=== PATIENT | male | born 1940 | race Hispanic/Latino ===

== ENCOUNTER 2024-08-25 16:54 | Inpatient (IN) | payer OTHER ==
[~2024-08-25] VITALS: Ht 167.6 cm; Wt 61.0 kg
[2024-08-25] MEDS ORDERED: acetaMINOPHEN 500 MG TABLET PO ONE (17:00)
[2024-08-25 17:22] LABS: BASOPHILS # (AUTO) 0.04 K/uL (0.00-0.20); BASOPHILS % (AUTO) 0.3 % (0.0-5.0); EOSINOPHILS # (AUTO) 0.01 K/uL (0.00-0.70); EOSINOPHILS % (AUTO) 0.1 % (0.0-8.0); HEMATOCRIT 35.1 % (42-54); IMMATURE GRANULOCYTE ABSOLUTE 0.06 K/uL (0-1); LYMPHOCYTES # (AUTO) 0.3 K/uL (1.0-4.8); MEAN CORPUSCULAR HGB CONC 33.9 g/dL (32.0-36.0); MEAN CORPUSCULAR VOLUME 100.3 fL (79-99); MONOCYTES # (AUTO) 0.6 K/uL (0.1-1.0); MONOCYTES % (AUTO) 4.6 % (3.0-13.0); NEUTROPHILS # (AUTO) 11.6 K/uL (1.8-7.7); NEUTROPHILS % (AUTO) 92.5 % (40.0-77.0); PLATELET COUNT (AUTO) 181 K/uL (130-400); WHITE BLOOD COUNT (AUTO) 12.6 K/uL (4.8-10.8)
[2024-08-25 17:29] LABS: RAPID GROUP A STREP negative (NEGATIVE)
[2024-08-25 17:32] LABS: SARS-CoV-2, RNA, NAAT NEGATIVE SARS CoV-2 (NEGATIVE)
[2024-08-25 17:33] LABS: CREATININE 0.8 mg/dL (0.5-1.3)
[2024-08-25 17:39] LABS: INFLUENZA TYPE A Negative For Type A (NEGATIVE); INFLUENZA TYPE B Negative For Type B (NEGATIVE)
[2024-08-25 17:44] LABS: B-TYPE NATRIURETIC PEPTIDE 37 pg/mL (0-100)
[2024-08-25] MEDS: ZOSYN 3.375GM +NS 50ML IV ONE (17:45)
[2024-08-25] MEDS: ibuPROFEN 400 MG TABLET PO ONE (17:45)
[2024-08-25] MEDS: 0.9%NACL 1000ML 1,000 ML IV ONE ×2 (17:45→18:30)
[2024-08-25 17:46] LABS: ALBUMIN 2.6 g/dL (3.5-5.0); BILIRUBIN,DIRECT 3.2 mg/dL (0.0-0.3); BILIRUBIN,TOTAL 4.1 mg/dL (0.2-1.0); TOTAL PROTEIN, SERUM 7.8 g/dL (6.0-8.3)
--- NOTE | 2024-08-25 17:54 | HMCIMG ---
CHEST 1VW HISTORY: Fever COMPARISON: None FINDINGS: A frontal projection of the chest was obtained. No acute pulmonary infiltrates is seen. The heart is borderline enlarged. Degenerative changes are seen. No evidence of aortic calcification is seen. IMPRESSION: 1. No acute pulmonary infiltrate is seen.
--- NOTE | 2024-08-25 18:14 | NUR ---
SONO TECH AT BEDSIDE.
--- NOTE | 2024-08-25 18:40 | NUR ---
ORDERS RECEIVED FROM DR STANLEY
--- NOTE | 2024-08-25 18:50 | HMCIMG ---
US ABDOMINAL RUQ\E\LTD HISTORY: Pain COMPARISON: None TECHNIQUE: Right upper quadrant abdominal ultrasound study was performed. FINDINGS: Liver measures 18.6 cm. Portal vein is patent. Intrahepatic duct dilatation is seen. Sludge material is seen in the gallbladder. The visualized portion of the pancreas is within normal limits. Liver is echogenic consistent with liver parenchymal disease. No gallstone is seen. Common duct measures under 2 mm. No evidence of gallbladder wall thickening is seen. Right kidney measures 10.1 x 4.1 x 4.9 cm. No hydronephrosis is seen of the right kidney. IMPRESSION: 1. Sludge material is seen in the gallbladder. No gallstone is seen. There are intrahepatic and extrahepatic ductal dilatation. 2. No hydronephrosis is seen.
--- NOTE | 2024-08-25 18:58 | ERN ---
ED Note History of Present Illness Stated Complaint: FEVER Chief Complaint: Fever Time Seen by MD: 16:57 Dictation: 83-year-old male presenting from incarceration with fever not feeling well and GI discomfort. No pain patient reports history of prostatitis. [facility] medical s creening staff reported fever and tachycardia. Allergies: Coded Allergies: No Known Drug Allergies (Unverified Allergy, Unknown, 08/25/24) Past Medical History Past Medical History: Arthritis, Other Additional Past Medical Hx: BPH Surgical History: None Review of System Dictation Constitutional: Per HPI Eyes: Negative for injury, pain,redness, and discharge ENT: Negative for injury,pain or swelling Cardiovascular: Negative for chest pain, palpitations, and edema Respiratory: Negative for shortness of breath, cough, and wheezing, Abdomen/GI: Per HPI Back: Negative for injury and pain : Negative for injury, bleeding and discharge MS/Extremity: Negative for injury and deformity Skin: Negative for rash, and discoloration Neuro: Negative for headache, weakness, numbness, tingling, and seizure Psych: Negative for suicide ideation, homicidal ideation, and hallucinations Initial Vital Sign VS Vital Signs Date Time Temp Pulse Resp B/P (MAP) Pulse Ox O2 Delivery O2 Flow Rate FiO2 08/25/24 16:56 101.8 112 16 126/71 98 Room Air 0 Physical Exam Dictation General: awake, alert, febrile,. Appears ill Head/Face: Normocephalic, atraumatic Eyes: PERRL, EOMI, vision at baseline ENT: oral cavity clear, TMs clear, no signs of infection Neck: Trachea midline, supple, no nuchal rigidity Cardiovascular: Tachycardia, normal S1/S2, No MRGs, no JVD Respiratory: CTAB, no respiratory distress, No rales or wheezes Abdomen: Soft, non-tender, non-distended, normal bowel sounds, no guarding or rebound. Skin: Warm, dry, normal turgor, no rash MS/Extremity: Pulses equal, no cyanosis, neurovascular intact, FROM Neuro: COAx4, GCS 15, strength 5/5, CN 2-12 intact, normal cerebellar exam, normal gait, Psych: Normal behavior, mood, and affect normal Results (Laboratory/Radiology) Laboratory/Radiology Laboratory Tests Test 08/25/24 17:05 08/25/24 17:10 Influenza Type A Antigen Negative For Type A Influenza Type B Antigen Negative For Type B SARS-CoV-2, RNA, NAAT NEGATIVE SARS CoV-2 Group A Streptococcus Rapid negative (NEGATIVE) White Blood Count 12.6 K/uL (4.8-10.8) H Red Blood Count 3.50 MIL/uL (4.50-6.20) L Hemoglobin 11.9 g/dL (14.0-18.0) L Hematocrit 35.1 % (42-54) L Mean Corpuscular Volume 100.3 fL (79-99) H Mean Corpuscular Hemoglobin 34.0 pg (27.0-33.0) H Mean Corpuscular Hemoglobin Concent 33.9 g/dL (32.0-36.0) Red Cell Distribution Width 13.0 % (11.0-15.5) Platelet Count 181 K/uL (130-400) Mean Platelet Volume 9.6 fL (7.5-10.5) Immature Granulocyte % (Auto) 0.5 % (0-1) Neutrophils (%) (Auto) 92.5 % (40.0-77.0) H Lymphocytes (%) (Auto) 2.0 % (21.0-51.0) L Monocytes (%) (Auto) 4.6 % (3.0-13.0) Eosinophils (%) (Auto) 0.1 % (0.0-8.0) Basophils (%) (Auto) 0.3 % (0.0-5.0) Neutrophils # (Auto) 11.6 K/uL (1.8-7.7) H Lymphocytes # (Auto) 0.3 K/uL (1.0-4.8) L Monocytes # (Auto) 0.6 K/uL (0.1-1.0) Eosinophils # (Auto) 0.01 K/uL (0.00-0.70) Basophils # (Auto) 0.04 K/uL (0.00-0.20) Absolute Immature Granulocyte (auto 0.06 K/uL (0-1) Nucleated Red Blood Cells 0.0 % (0.0-0.19) White Cell Morphology Comment See comments Sodium Level 133 mmol/L (136-145) L Potassium Level 4.0 mmol/L (3.5-5.1) Chloride Level 99 mmol/L (101-111) L Carbon Dioxide Level 27 mmol/L (21-32) Blood Urea Nitrogen 18 mg/dL (7-18) Creatinine 0.8 mg/dL (0.5-1.3) Glomerular Filtration Rate Calc 88 mL/min (>90) Random Glucose 145 mg/dL (70-105) H Lactic Acid Level 1.7 mmol/L (0.8-2.5) Total Calcium 8.3 mg/dL (8.5-10.1) L Total Bilirubin 4.1 mg/dL (0.2-1.0) H Direct Bilirubin 3.2 mg/dL (0.0-0.3) H Aspartate Amino Transf (AST/SGOT) 145 U/L (10-37) H Alanine Aminotransferase (ALT/SGPT) 135 U/L (12-78) H Alkaline Phosphatase 663 U/L (50-136) *H Total Creatine Kinase 126 U/L (21-232) Troponin I High Sensitivity 10 ng/L (4-75) B-Type Natriuretic Peptide 37 pg/mL (0-100) Total Protein 7.8 g/dL (6.0-8.3) Albumin 2.6 g/dL (3.5-5.0) L Labs Reviewed?: Yes EKG Comment: Sinus tachycardia heart rate 123 normal intervals no STEMI ED Course ED Course Orders Procedure Category Date Status Time 12 Lead Ekg Tracing- EKG 08/25/24 Logged Technical 16:57 B-Type Natriuretic LAB 08/25/24 Complete Peptide 16:57 Basic Metabolic Panel LAB 08/25/24 Complete 16:57 Blood Cult SHAREE 08/25/24 In Process 16:57 Creatine Kinase, Total LAB 08/25/24 Complete 16:57 Hepatic Function Panel LAB 08/25/24 Complete 16:57 Cbc With Differential LAB 08/25/24 Complete 16:57 Lactic Acid LAB 08/25/24 Complete 16:57 Troponin I High LAB 08/25/24 Complete Sensitivity 16:57 Urinalysis Profile LAB 08/25/24 Logged 16:57 Chest 1vw RAD 08/25/24 Resulted 16:57 Zosyn 3.375gm+Ns 50ml PHA 08/25/24 Complete (Zosyn 3.375gm+Ns 17:00 0.9%Nacl 1000ml (Ns PHA 08/25/24 Complete 1000ml) 17:00 Acetaminophen 500mg PHA 08/25/24 Complete Tab (Tylenol 500mg T 17:00 Covid Rna Naat LAB 08/25/24 Complete 17:06 Influenza Type A & B, LAB 08/25/24 Complete Rapid 17:06 Rapid (Group A Strep) LAB 08/25/24 Complete 17:06 Ibuprofen (Motrin) PHA 08/25/24 Complete 17:30 Us Abdominal Ruq\Ltd US 08/25/24 Resulted 17:56 0.9%Nacl 1000ml (Ns PHA 08/25/24 Complete 1000ml) 18:30 *Nursing CPOE 08/25/24 Transmitted Communication: 18:09 Current Medications Medications (Trade) Dose Ordered Sig/Justus Route PRN Reason Start Time Stop Time Status Last Admin Dose Admin Acetaminophen (TYLenol 500MG TAB) 1,000 mg ONCE ONCE PO 08/25/24 17:00 08/25/24 17:07 DC Ibuprofen (moTRIN) 600 mg ONCE ONCE PO 08/25/24 17:30 08/25/24 17:31 DC 08/25/24 17:45 Piperacillin Sod/ Tazobactam Sod (Zosyn 3.375gm+NS 50ml) 3.375 gm ONCE ONCE IV 08/25/24 17:00 08/25/24 17:01 DC 08/25/24 17:45 Sodium Chloride 1,000 ml @ 0 mls/hr ONCE ONCE IV 08/25/24 17:00 08/25/24 17:01 DC 08/25/24 17:45 Sodium Chloride 1,000 ml @ 0 mls/hr ONCE ONCE IV 08/25/24 18:30 08/25/24 18:31 DC Vital Signs Date Time Temp Pulse Resp B/P (MAP) Pulse Ox O2 Delivery O2 Flow Rate FiO2 08/25/24 16:56 101.8 112 16 126/71 98 Room Air 0 Medical Decision Making MDM MDM: Differential diagnosis: Rationale: Tests considered and ordered secondary to shared decision making include: labs, ECG and radiology Previous outside records reviewed: Old ER visits. Risk of complication and/or morbidity or mortality of patient management: None Medications-Per medication reconciliation Need for hospitalization: Patient does meet criteria for hospitalization. Need for emergency major/minor surgery: No There are no social concerns with this patient. Prescription drug management Prescriptions will include symptomatic care Patient's prior external medical records from other ER visits were reviewed by me as indicated. Prior testing and results from previous visits were reviewed. Prior tests were taken into account with medical decision making and resource utilization, independent historian/historians were used to obtain complete medical history. I independently interpreted the test that were performed, results were reviewed by me and considered findings on radiology if ordered. Medical management and examination interpretation discussions were had by me with other qualified healthcare professionals as indicated for the patient's care. 83-year-old male with sepsis, transaminitis with elevated direct bilirubin concern for choledocholithiasis/cholangitis, started on broad-spectrum antibiotics IV fluids admitting to Medicine with GI consult for Critical Care Note Comment(s) Total critical care time was 33 minutes. Excluding time for procedures. Management of critically ill patient with concern for acute decompensation. Management included interpretation of laboratory values and imaging, hemodynamics, time for consultation with consultants and admitting physician. DX & DISP Disposition: Inpatient Departure Impression: Primary Impression: Sepsis Additional Impressions: Choledocholithiasis, Cholangitis Condition: Stable Referrals: SELF,REFERRAL (PCP) MAYUR FINCH MD Aug 25, 2024 18:58
--- NOTE | 2024-08-25 19:10 | NUR ---
REPORT ENDORSED TO CHARITO LUNDBERG
[2024-08-25] MEDS ORDERED: acetaMINOPHEN 325 MG TAB PO PRN (20:30)
[2024-08-25] MEDS: ZOSYN 3.375GM +NS 50ML IV SCH (20:30)
[2024-08-25] MEDS ORDERED: ondanSETRON 4MG TABLET PO SCH (20:30)
[2024-08-25] MEDS: DEXTROSE 5 % AND 0.9 % NACL 1,000 ML IV SCH (20:48)
[2024-08-25] MEDS ORDERED: ondanSETRON 4MG TABLET PO PRN (21:00)
[2024-08-25 21:28] LABS: APPEARANCE,URINE CLEAR (CLEAR); BILIRUBIN,URINE 1 mg/dL (NEGATIVE); COLOR,URINE DARK-YELLOW (YELLOW); GLUCOSE, URINE (UA) NEGATIVE (NEGATIVE); KETONES,URINE NEGATIVE (NEGATIVE); LEUKOCYTE ESTERASE ,URINE NEGATIVE Leu/uL (NEGATIVE); NITRATE,URINE NEGATIVE (NEGATIVE); OCCULT BLOOD,URINE NEGATIVE (NEGATIVE); PROTEIN,URINE NEGATIVE (NEGATIVE); UROBILINOGEN,URINE 3 mg/dL (0.2-1.0)
[2024-08-25 21:30] LABS: ADD UA MICROSCOPIC YES; MUCUS,URINE RARE LPF (None Seen); SQUAMOUS EPITHELIAL CELL,UR RARE /HPF (0-2); WBC,URINE 0-1 /HPF (0-1)
--- NOTE | 2024-08-25 21:47 | NUR ---
RECEIVED REPORT FROM CHARITO POTTS RN, AWAITING PATIENT ARRIVAL TO UNIT.
[2024-08-26] VITALS (8 sets, daily range): BP systolic 119–151; BP diastolic 65–83; PULSE 62–89; RESP 16–18; TEMP 97.5–97.8; O2SAT 98–100
[2024-08-26] MEDS: ZOSYN 3.375GM +NS 50ML IV SCH (02:18)
--- NOTE | 2024-08-26 06:43 | EKG ---
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
[2024-08-26] MEDS: ENOXAPARIN SODIUM 30 MG/0.3 ML SQ SCH (09:00)
--- NOTE | 2024-08-26 11:14 | NUR ---
DCP: [facility] Pt is currently being detained at [facility]. Spoke with officer Dominic and once pt is stable he will be returning to custody. Addendum: 08/26/24 at 1115 by HARISH LOVE SS Amended: Links added.
--- NOTE | 2024-08-26 15:04 | CONS ---
GENERAL SURGERY CONSULTATION NOTE Date/Time Patient Seen: [August 26, 2024 ] Requesting Physician: [Dr. Dave Avitia ] Reason for Consultation: [ Elevated liver function tests with findings of possible choledocholithiasis] History of Present Illness: [ Patient was and a incarcerated facility when he started not feeling well with abdominal shakes. Altered mental status. Patient also indicates he had a three day history of very dark urine. Patient indicates the onset was sudden. Never had symptoms like this before. Patient denies any melena, hematochezia, hematuria. Patient can not tell me he has had significant amount of weight loss recently. Patient denies any medical problems. Says that he has had a history of an appendectomy and foot surgery as a child. Patient had the ultrasound done. I personally reviewed the ultrasound. Patient does have some stones in the gallbladder however his dilated biliary tree is concerning for not just stones. At this point in time I think a CT scan is warranted to get a global view of liver and the pancreas well as the rest of the biliary.] Past Medical History: [ Patient denies] Past Surgical History: [ Appendectomy, foot surgery] Family History: [ Noncontributory] Social History: [ Patient denies any illicit drug use] Habits: [Never] smoker. [Denies] alcohol consumption. [Denies] illicit drug use Current Medications Medications (Trade) Dose Ordered Sig/Justus Route Start Time Stop Time Status Last Admin Dose Admin Dextrose/Sodium Chloride 1,000 ml @ 75 mls/hr [id number] IV 08/25/24 20:30 09/24/24 20:29 08/25/24 20:48 75 MLS/HR Enoxaparin Sodium (Lovenox) 30 mg DAILY SQ 08/26/24 09:00 09/25/24 08:59 Ondansetron HCl (zoFRAN 4MG TABLET) 4 mg Q6H PO 08/25/24 20:30 08/25/24 20:36 DC Piperacillin Sod/ Tazobactam Sod (Zosyn 3.375gm+NS 50ml) 3.375 gm Q8H IV 08/25/24 20:30 08/25/24 20:39 DC Piperacillin Sod/ Tazobactam Sod (Zosyn 3.375gm+NS 50ml) 3.375 gm Q8H IV 08/26/24 02:00 09/05/24 01:59 08/26/24 12:51 3.375 GM Review of Systems: Fourteen point review of systems negative except was mentioned in the history of present illness Physical Examination: GENERAL: [No acute distress.] HEAD: [Normal with no signs of head trauma.] EYES: [PERRLA, EOMI, conjunctiva and sclera normal.] ENT: [Hearing grossly intact, normal oropharynx.] NECK: [Supple without JVD. There is no tenderness, lymphadenopathy, or masses. No thyromegaly. Normal carotid upstrokes without bruits.] LUNGS: [Clear breath sounds bilaterally. There are right basilar rales one third of the way up the chest. No wheezes, or rhonchi.] HEART: [Normal rate and rhythm. Normal S1 and S2 without mumurs, gallop or rub.] VASC: [Peripheral pulses +2 bilaterally.] ABD: [Bowel sounds normal, soft, nontender, no masses, no organomegaly. No audible bruits.] : [Not examined] LYMPH: [No lymphadenopathy noted.] EXT: [No clubbing, cyanosis or edema.] SKIN: [No rashes or lesions noted.] NEURO: [Awake, alert, and oriented x3. No focal sensory or strength deficits noted.] Vital Signs (last 8hr) Date Time Temp Pulse Resp B/P (MAP) Pulse Ox O2 Delivery O2 Flow Rate FiO2 08/26/24 12:00 97.5 62 18 141/73 96 Room Air 21 08/26/24 08:00 97.9 64 16 128/78 96 Room Air 21 Laboratory: [ ] Hematology Labs: Test 08/25/24 17:10 Range/Units White Blood Count 12.6 H 4.8-10.8 K/uL Red Blood Count 3.50 L 4.50-6.20 MIL/uL Hemoglobin 11.9 L 14.0-18.0 g/dL Hematocrit 35.1 L 42-54 % Mean Corpuscular Volume 100.3 H 79-99 fL Mean Corpuscular Hemoglobin 34.0 H 27.0-33.0 pg Mean Corpuscular Hemoglobin Concent 33.9 32.0-36.0 g/dL Red Cell Distribution Width 13.0 11.0-15.5 % Platelet Count 181 130-400 K/uL Mean Platelet Volume 9.6 7.5-10.5 fL Immature Granulocyte % (Auto) 0.5 0-1 % Neutrophils (%) (Auto) 92.5 H 40.0-77.0 % Lymphocytes (%) (Auto) 2.0 L 21.0-51.0 % Monocytes (%) (Auto) 4.6 3.0-13.0 % Eosinophils (%) (Auto) 0.1 0.0-8.0 % Basophils (%) (Auto) 0.3 0.0-5.0 % Neutrophils # (Auto) 11.6 H 1.8-7.7 K/uL Lymphocytes # (Auto) 0.3 L 1.0-4.8 K/uL Monocytes # (Auto) 0.6 0.1-1.0 K/uL Eosinophils # (Auto) 0.01 0.00-0.70 K/uL Basophils # (Auto) 0.04 0.00-0.20 K/uL Absolute Immature Granulocyte (auto 0.06 0-1 K/uL Nucleated Red Blood Cells 0.0 0.0-0.19 % White Cell Morphology Comment See comments Chemistry Labs: Test 08/25/24 17:10 Range/Units Sodium Level 133 L 136-145 mmol/L Potassium Level 4.0 3.5-5.1 mmol/L Chloride Level 99 L 101-111 mmol/L Carbon Dioxide Level 27 21-32 mmol/L Blood Urea Nitrogen 18 7-18 mg/dL Creatinine 0.8 0.5-1.3 mg/dL Glomerular Filtration Rate Calc 88 >90 mL/min Random Glucose 145 H 70-105 mg/dL Lactic Acid Level 1.7 0.8-2.5 mmol/L Total Calcium 8.3 L 8.5-10.1 mg/dL Total Bilirubin 4.1 H 0.2-1.0 mg/dL Direct Bilirubin 3.2 H 0.0-0.3 mg/dL Aspartate Amino Transf (AST/SGOT) 145 H 10-37 U/L Alanine Aminotransferase (ALT/SGPT) 135 H 12-78 U/L Alkaline Phosphatase 663 *H 50-136 U/L Total Creatine Kinase 126 21-232 U/L Troponin I High Sensitivity 10 4-75 ng/L B-Type Natriuretic Peptide 37 0-100 pg/mL Total Protein 7.8 6.0-8.3 g/dL Albumin 2.6 L 3.5-5.0 g/dL Diagnostics / Radiology: [Copy/Paste Echos/Imaging Report here] Assessment: [Biliary distention ] Plan: [ At home think that this is just choledocholithiasis. I think the could be a malignancy head and some air. I think a CT scan of abdomen pelvis triple phase is warranted to fully evaluate all structures to rule out just choledocholithiasis. Discussed the case with the primary physician who agrees with the plan.] BRE JAMES MD Aug 26, 2024 15:04
[2024-08-26] MEDS ORDERED: GADOTERATE MEGLUMINE 10 MMOL/20 ML VIAL IV ONE (16:15)
[2024-08-26] MEDS ORDERED: IOHEXOL 350 MG/ML 100ML INFUS..BTL IV ONE (16:25)
--- NOTE | 2024-08-26 16:48 | HMCIMG ---
MRCP(ABDWWO)CHOLANGIOPANCREATO HISTORY: Possible cholangitis COMPARISON: None TECHNIQUE: MRI of the abdomen was performed utilizing multiple pulse sequences in axial, coronal and sagittal planes. Patient was given 12 cc of Clariscan through intravenous route. MRCP was obtained. FINDINGS: No pleural effusion is seen bilaterally. The liver is enlarged measuring 18 cm. Gallstones is seen in the gallbladder. Common duct is dilated measuring 2.2 cm. Gallstones are seen in the distal common duct with the largest measuring 12 mm. Mild intrahepatic ductal dilatation is seen. Spleen measures 13 cm. Adrenal glands and pancreas are unremarkable. Both kidneys are seen without hydronephrosis. IMPRESSION: 1. Gallstones in the gallbladder. Lumen there is dilated measuring 2.3 cm. Common duct stones as seen.
--- NOTE | 2024-08-26 17:37 | HMCIMG ---
CT ABD/PEL WWO 3 PHASE HISTORY: Biliary dilatation COMPARISON: None TECHNIQUE: Multiple sequential axial images of the abdomen and pelvis were obtained from the dome of the diaphragm through symphysis pubis. Patient was given 100 cc of Omnipaque through intravenous route. Oral contrast was not given. Dynamic imaging technique was used. FINDINGS: No pleural effusion is seen bilaterally. There is no evidence of parenchymal disease or pulmonary nodule of the visualized lower lungs. Degenerative changes of the thoracolumbar spine are present. The heart is not enlarged. Liver is enlarged measuring 18 cm. Gallstones are seen in the gallbladder. There is intrahepatic ductal dilatation. There is pancreatic head enlargement measuring 3.5 cm. Common duct is dilated measuring 15 mm. There is common duct stone measuring 14 mm. There is pericholecystic fluid. The liver, spleen, adrenal glands are unremarkable. There is no evidence of hydronephrosis bilaterally. No evidence of renal stone is seen. Fecal material is seen in the colon. There are normal size retroperitoneal and mesenteric lymph nodes. No ascites is seen. Atherosclerotic changes are present. Pelvic sidewalls are symmetric bilaterally. Bladder is well distended without wall thickening. IMPRESSION: 1. Gallstones in the gallbladder. Dilated common duct with common duct stone. Less amount of fecal material is seen in the colon. Pancreatic head is enlarged measuring 3.[address] was performed with one or more following dose reduction techniques: automated exposure control, adjustment of the mA and kv according to patient's size, or use of a iterative reconstruction technique.
--- NOTE | 2024-08-26 18:00 | NUR ---
SPOKE WITH DR CHRISTIANSEN ,ORDERS TO CALL DR YOUNG AND NOTIFY HIM OF PLANS FOR AN ERCP IN THE AFTERNOON AT 130 PM ON 08/27/24.
--- NOTE | 2024-08-26 18:18 | NUR ---
DR YOUNG OKAYED FOR CLEAR LIQUID DIET FOR THIS PM AND INFORMED HIM THAT CT RESULT WAS POSTED.
--- NOTE | 2024-08-26 19:15 | NUR ---
NOTED PATIENT WITH HANDCUFFS REDNESS TO AREA, NO OPEN WOUND.
--- NOTE | 2024-08-26 20:00 | NUR ---
DR CHRISTIANSEN SPOKE TO PATIENT REGARDING POSSIBLE ERCP IN AM. 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
[2024-08-27] VITALS: BP 110/66; PULSE 84; RESP 16; TEMP 97.6
--- NOTE | 2024-08-27 02:14 | HP ---
DATE OF SERVICE: 08/25/2024. HISTORY AND PHYSICAL PRESENTING COMPLAINT: Weakness, abdominal pain, and fever. HISTORY OF PRESENT ILLNESS: An 83-year-old male with a history of osteoarthritis, BPH, presented to the hospital with abdominal pain and weakness. The patient also complained of fever. The patient was brought in from the senior living with the above complaint. T-max was 101.8. Pulse also was elevated. WBC was 12,000. The patient was found with elevated liver enzymes with an alkaline phosphatase of 663, AST 145, ALT 135. Total bilirubin was 4.1. Abdominal sonogram has been done, which shows multiple gallstones and intrahepatic and extrahepatic dilatation. Denied nausea and vomiting. No diarrhea. No bleeding tendencies. No rashes or itchiness. PAST MEDICAL HISTORY: * Osteoarthritis. * BPH. PAST SURGICAL HISTORY: Denied. ALLERGIES: No known drug allergies. HOME MEDICATIONS: None. SOCIAL HISTORY: The patient at present incarcerated at the senior living. No alcohol, tobacco, or illicit drug use. FAMILY HISTORY: Noncontributory. REVIEW OF SYSTEMS: CONSTITUTIONAL: Positive for fever. No weight loss or night sweats. EYES: Positive for jaundice. No photophobia or diplopia. HENT: Denies sore throat, rhinorrhea or earache. NECK: No neck pain, no neck swelling. RESPIRATORY: No cough, no hemoptysis or pleuritic pain. CARDIOVASCULAR: No chest pain, no palpitations or orthopnea. GASTROINTESTINAL: Positive for abdominal pain. No diarrhea. GENITOURINARY: No dysuria, urgency, or urinary frequency. CENTRAL NERVOUS SYSTEM: No headache, dyspnea, or slurred speech. PSYCHIATRY: No depression. No suicidal ideation. PHYSICAL EXAMINATION: GENERAL: Elderly male, awake. VITAL SIGNS: Temperature 101.8, pulse 112, respiratory rate 22. EYES: Jaundiced. Pupils equal and reactive. No conjunctival hemorrhage. HENT: No oral thrush seen. Moist oral mucosa. NECK: Supple. No JVD or thyromegaly. LUNGS: Good air entry. No rales. No rhonchi. CARDIOVASCULAR SYSTEM: S1, S2, regular, tachycardic. No murmur heard. ABDOMEN: Full, soft, nontender. Bowel sound is present. CENTRAL NERVOUS SYSTEM: Awake, alert, and oriented x 3. No focal deficits. SKIN: No rashes, no itchiness. LYMPHATIC: No peripheral lymphadenopathy. BACK: No deformity, no pressure ulcer. MUSCULOSKELETAL: No joint swelling, erythema, or tenderness. LABORATORY DATA: Alkaline phosphatase of 663. AST 145, ALT 135, total bilirubin 4.1. Sodium 133, potassium 4.0, BUN 18, creatinine 0.8. WBC 12.6, hemoglobin 11.9, platelets 181. Urinalysis is negative. negative. RADIOLOGY: Abdominal ultrasound, results were reviewed. ASSESSMENT: An 83-year-old male, presented with fever, abdominal pain. CURRENT PROBLEMS: Include: * Possible gram-negative sepsis. * Possible cholangitis. * Possible choledocholithiasis. * Possible cholecystitis. * Possible pancreatic mass. * Elevated liver enzymes. PLAN: * Admit the patient to medical floor. * Obtain MRCP. * Start the patient on Zosyn. * The patient will be placed on IV fluid. * Morphine as needed for pain. * General surgery evaluation. * Gastroenterology evaluation. * Monitor electrolytes and correct as needed. TID: [id number] RECEIPT: [id number] MTD
--- NOTE | 2024-08-27 02:20 | NUR ---
PATIENT CONTINUE TO REFUSE MEDICAL TREATMENT STATES HE WANTS TO RETURN TO [facility]
[2024-08-27 04:00] VITALS: BP 132/78; PULSE 72; RESP 16; TEMP 97.6
[2024-08-27 04:50] LABS: HEMATOCRIT 37.5 % (42-54); MEAN CORPUSCULAR HEMOGLOBIN 34.3 pg (27.0-33.0); MEAN CORPUSCULAR HGB CONC 35.2 g/dL (32.0-36.0); MEAN CORPUSCULAR VOLUME 97.4 fL (79-99); RED BLOOD CELL COUNT(AUTO) 3.85 MIL/uL (4.50-6.20); WHITE BLOOD COUNT (AUTO) 7.9 K/uL (4.8-10.8)
[2024-08-27 05:21] LABS: ALBUMIN 2.5 g/dL (3.5-5.0); BILIRUBIN,TOTAL 2.2 mg/dL (0.2-1.0); CREATININE 0.7 mg/dL (0.5-1.3); MAGNESIUM 1.8 mg/dL (1.80-2.40); POTASSIUM 3.3 mmol/L (3.5-5.1); TOTAL PROTEIN, SERUM 7.6 g/dL (6.0-8.3)
--- NOTE | 2024-08-27 05:42 | PN ---
INFECTIOUS DISEASE FOLLOWUP NOTE DATE OF SERVICE: 08/26/2024 SUBJECTIVE: The patient is seen. No fever, no chills. No nausea, no vomiting. No abdominal pain. No headache. No bleeding tendency. No rashes are seen. MRCP is pending. PHYSICAL EXAMINATION: VITAL SIGNS: Temperature 98.6. EYES: No icterus. Pupils equal and reactive. HENT: No oral thrush seen. Moist oral mucosa. NECK: Supple. No JVD or thyromegaly. LUNGS: Good air entry. No rales, no rhonchi. CARDIOVASCULAR: S1 and S2 regular. No murmur heard. ABDOMEN: Full, soft, nontender. Bowel sound is present. CENTRAL NERVOUS SYSTEM: Awake, alert, oriented x 3. No focal deficits. SKIN: No rashes, no itchiness. LYMPHATICS: No peripheral lymphadenopathy. BACK: No deformity, no pressure ulcer. MUSCULOSKELETAL: No joint swelling, erythema, or tenderness. ASSESSMENT: An 83-year-old male admitted with abdominal pain. CURRENT PROBLEMS: Include: * Sepsis. * Possible cholangitis. * Possible choledocholithiasis. * Elevated liver enzymes. * Cholecystitis. * Debility. PLAN: * Continue Zosyn. * Continue pain management. * Continue antiemetics. * Follow up cultures. * Continue DVT prophylaxis. TID: [id number] RECEIPT: [id number] MTDD
[2024-08-27] MEDS ORDERED: PoTASSium chloRIDE 20MEQ/100ML 100 ML IV PRN (07:30)
--- NOTE | 2024-08-27 07:38 | PN ---
GENERAL SURGERY PROGRESS NOTE Date/Time Patient Seen: [August 27, 2024 ] Problem List: [Choledocholithiasis] Interval History: [ Patient denies any pain. Patient is resting easily. Had look at the MRCP and the CT abdomen pelvis that was done yesterday. Patient has a common bile duct stone with the head of the pancreas in the head of the pancreas was slightly dilated. This could be because of the common bile duct stone that measured approximately 1.2 cm. I do not think this truly a pancreatic head lesion however if patient is going to undergo an ERCP I think it would be beneficial for brushings to be obtained of the duct. I discussed the case with the practice architect who agrees. I personally looked at the MRCP and the CT scan imaging and then the above interpretation so my interpretation of those images.] Current Medications Medications (Trade) Dose Ordered Sig/Justus Route Start Time Stop Time Status Last Admin Dose Admin Dextrose/Sodium Chloride 1,000 ml @ 75 mls/hr [id number] IV 08/25/24 20:30 09/24/24 20:29 08/27/24 05:09 75 MLS/HR Enoxaparin Sodium (Lovenox) 30 mg DAILY SQ 08/26/24 09:00 09/25/24 08:59 Ondansetron HCl (zoFRAN 4MG TABLET) 4 mg Q6H PO 08/25/24 20:30 08/25/24 20:36 DC Piperacillin Sod/ Tazobactam Sod (Zosyn 3.375gm+NS 50ml) 3.375 gm Q8H IV 08/25/24 20:30 08/25/24 20:39 DC Piperacillin Sod/ Tazobactam Sod (Zosyn 3.375gm+NS 50ml) 3.375 gm Q8H IV 08/26/24 02:00 09/05/24 01:59 08/27/24 01:38 3.375 GM Physical Examination: Awake, alert, oriented x3 Unlabored Regular rate and rhythm Abdomen soft, nontender, nondistended Vital Signs (last 8hr) Date Time Temp Pulse Resp B/P (MAP) Pulse Ox O2 Delivery O2 Flow Rate FiO2 08/27/24 04:00 97.5 72 16 132/78 99 Room Air 21 08/27/24 00:00 97.5 84 16 110/66 98 Room Air 21 Laboratory: [ ] Hematology Labs: Test 08/27/24 04:27 08/25/24 17:10 Range/Units White Blood Count 7.9 4.8-10.8 K/uL Red Blood Count 3.85 L 4.50-6.20 MIL/uL Hemoglobin 13.2 L 14.0-18.0 g/dL Hematocrit 37.5 L 42-54 % Mean Corpuscular Volume 97.4 79-99 fL Mean Corpuscular Hemoglobin 34.3 H 27.0-33.0 pg Mean Corpuscular Hemoglobin Concent 35.2 32.0-36.0 g/dL Red Cell Distribution Width 13.0 11.0-15.5 % Platelet Count 174 130-400 K/uL Mean Platelet Volume 10.1 7.5-10.5 fL Nucleated Red Blood Cells 0.0 0.0-0.19 % Immature Granulocyte % (Auto) 0.5 0-1 % Neutrophils (%) (Auto) 92.5 H 40.0-77.0 % Lymphocytes (%) (Auto) 2.0 L 21.0-51.0 % Monocytes (%) (Auto) 4.6 3.0-13.0 % Eosinophils (%) (Auto) 0.1 0.0-8.0 % Basophils (%) (Auto) 0.3 0.0-5.0 % Neutrophils # (Auto) 11.6 H 1.8-7.7 K/uL Lymphocytes # (Auto) 0.3 L 1.0-4.8 K/uL Monocytes # (Auto) 0.6 0.1-1.0 K/uL Eosinophils # (Auto) 0.01 0.00-0.70 K/uL Basophils # (Auto) 0.04 0.00-0.20 K/uL Absolute Immature Granulocyte (auto 0.06 0-1 K/uL White Cell Morphology Comment See comments Chemistry Labs: Test 08/27/24 04:27 08/25/24 17:10 Range/Units Sodium Level 131 L 136-145 mmol/L Potassium Level 3.3 L 3.5-5.1 mmol/L Chloride Level 98 L 101-111 mmol/L Carbon Dioxide Level 25 21-32 mmol/L Blood Urea Nitrogen 11 7-18 mg/dL Creatinine 0.7 0.5-1.3 mg/dL Glomerular Filtration Rate Calc 92 >90 mL/min Random Glucose 105 70-105 mg/dL Total Calcium 8.8 8.5-10.1 mg/dL Magnesium Level 1.80 1.80-2.40 mg/dL Total Bilirubin 2.2 H 0.2-1.0 mg/dL Aspartate Amino Transf (AST/SGOT) 88 H 10-37 U/L Alanine Aminotransferase (ALT/SGPT) 106 H 12-78 U/L Alkaline Phosphatase 567 H 50-136 U/L Total Protein 7.6 6.0-8.3 g/dL Albumin 2.5 L 3.5-5.0 g/dL Lactic Acid Level 1.7 0.8-2.5 mmol/L Direct Bilirubin 3.2 H 0.0-0.3 mg/dL Total Creatine Kinase 126 21-232 U/L Troponin I High Sensitivity 10 4-75 ng/L B-Type Natriuretic Peptide 37 0-100 pg/mL Diagnostics / Radiology: [Copy/Paste Echos/Imaging Report here] Impression and Plan: [ Choledocholithiasis. I recommend patient undergo an ERCP with brushings then possibly a laparoscopic cholecystectomy with intraoperative cholangiogram. At this point in time patient indicates he wants to go back to his facility. I discussed the case at length with the patient and told him that I recommend that he undergo with the procedure but that it is his decision of what he wants to do. I will await patient's final decision.] BRE JAMES MD Aug 27, 2024 07:38
[2024-08-27 08:00] VITALS: BP 133/84; PULSE 95; RESP 18; TEMP 97
[2024-08-27] MEDS: MAGNESIUM 2GM PREMIX 50ML 50 ML IV PRN (09:10)
[2024-08-27 09:11] VITALS: O2SAT 99
[2024-08-27] MEDS: PoTASSium chloRIDE 20MEQ ER 20 MEQ ERTAB PO PRN (09:11)
--- NOTE | 2024-08-27 11:55 | CONS ---
GASTROINTESTINAL CONSULTATION REFERRING PHYSICIAN: David Stanley MD REASON FOR CONSULTATION: Fever, chills with abnormal abdominal imaging with CT scan and MRI showing choledocholithiasis with enlargement of pancreatic head and triple-phase CT in a patient with elevated liver chemistries and jaundice, for which GI evaluation and management are sought. HISTORY OF PRESENT ILLNESS: According to the patient and medical records while incarcerated and in the facility, the patient experienced fever and chills, and was brought to the emergency room here at [facility] where on presentation, he was noted to have temperature of 101.8 with tachycardia with heart rate 112. The patient also reports he has been experiencing chills. He denies any abdominal pain, nausea, vomiting, melena, hematochezia, diarrhea, constipation, or significant weight loss. The patient also denies any history of PUD. He has no family history of colon cancer, stomach cancer, gallbladder disease, or IBD as far as he knows. ALLERGIES: No known drug allergies. PAST MEDICAL AND PAST SURGICAL HISTORY: Arthritis and possible BPH, but no HTN, CAD, ND, CVA, seizure disorder, PUD or asthma. The patient denies any prior surgeries except for open appendectomy. He admits he had left forearm fracture during childhood, but had no surgery for this. MEDICATIONS: Enoxaparin, IV Zosyn, ondansetron, acetaminophen. SOCIAL HISTORY: The patient reports past history of smoking and alcohol use and reports he 10 years ago. He denies illicit drug use. FAMILY HISTORY: The patient denies family history of colon cancer, stomach cancer, esophageal disorders, liver disease, gallbladder disease, or pancreatic disease. He also denies family history of DM, HTN, CAD, ND, CVA. He has no family history of bleeding disorders either. REVIEW OF SYSTEMS: CONSTITUTIONAL: The patient reports he has been having dark urine, fever, chills, but symptoms have improved since hospitalization. He denies abdominal pain or gross GI bleed. DERMATOLOGY: He has jaundice. Denies any rash or excessive dry skin. OPHTHALMOLOGY: No recent vision change, eye pain, periorbital swelling, redness, or drainage. RESPIRATORY: Denies wheeze, rhinorrhea, epistaxis, chest congestion, or cough. ENT: No ear pain, tinnitus, hearing loss. He reports left swollen adenoids on and off. He denies sore throat, voice change, or dysphagia. CARDIOVASCULAR: Denies chest pain, palpitation, or leg swelling. He was tachycardic, however, on presentation to hospital. GENITOURINARY: No dysuria, hematuria, urinary urgency or frequency, as per the patient. MUSCULOSKELETAL: Medical records indicate arthritis. He denies joint pain or swelling now. NEUROLOGY: No tingling, numbness, vision changes, hearing loss. HEMATOLOGY/LYMPHATICS: The patient denies any inherited bleeding disorder, easy bruising, swollen, tender or palpable lymph nodes. ENDOCRINOLOGY: Denies diabetes, thyroid disease, or hyperlipidemia. PHYSICAL EXAMINATION: GENERAL: The patient is an 83-year-old male who appears stated age, seen resting in bed with notable jaundice, but in no acute respiratory distress. VITAL SIGNS: Blood pressure 141/73, heart rate 62, respirations 18, temperature 97.5 degrees Fahrenheit. SKIN: Warm, dry, jaundiced. HEENT: The patient's head is normocephalic, atraumatic. Pupils reactive. Sclerae icteric. Oral mucosa was moist. No obvious lesion or blood. Nasal mucosa showed no epistaxis, septal deviation, or perforation. NECK: No masses or jugular venous distention. No lymphadenopathy, no thyromegaly. LUNGS: Clear to auscultation bilaterally. HEART: S1, S2. No obvious murmurs, rubs, or gallops auscultated. ABDOMEN: Symmetric, soft with active bowel sounds. No hepatomegaly or masses. No tenderness noted. EXTREMITIES: No cyanosis, clubbing, or edema. RECTAL: Deferred. LABORATORY DATA: WBC is 12.6, hemoglobin 11.9, hematocrit 35.1, MCV of 100.3, platelet count of 181. Serum chemistry revealed a sodium of 133, potassium 4, chloride 99, CO2 of 27, BUN of 18, creatinine 0.8, GFR of 88, random glucose 145. Lactic acid of 1.7, total calcium 8.3. Total bilirubin of 4.1, direct bilirubin of 3.2, AST 145, ALT 135, alkaline phosphatase 663, total creatine kinase of 126. Troponin I high sensitivity was 10. Beta-type natriuretic peptide one day ago was 27. Total protein today at 7.8, albumin at 2.6. Influenza type A and type B antigen were negative. [id number] was negative also. Group A rapid Strep test was negative. Urinalysis done showed dark yellow, clear urine, pH of 6, specific gravity 1.02. Protein, glucose, ketone, occult blood, nitrite were negative. Bilirubin of 1, urobilinogen of 3, leukocyte esterase was negative, rbc 2-5, wbc 0-1. The squamous epithelial cell was rare, bacteria none. DIAGNOSTIC DATA: CT scan of the abdomen and pelvis done earlier today, a triple phase, showed gallstone in the gallbladder and dilated common duct with common duct stone. Intrahepatic ductal dilation was also noted. The pancreatic head enlargement measuring 3.5 cm is noted. Common duct dilation was 14-15 mm. There was a ductal stone measuring 14 mm. No hydronephrosis or nephrolithiasis noted. Fecal material is noted in the colon. Mesenteric and retroperitoneal lymph nodes were within normal limits. Atherosclerotic changes are noted. Bladder was well distended with no wall thickening and pelvic sidewalls were symmetric bilaterally. Ultrasound showed only intrahepatic ductal dilation and common duct measured 2 mm at that time. Liver was echogenic, suggestion of parenchymal disease - likely fatty liver. MRCP done showed gallstones in the gallbladder, dilated common bile duct measuring 2.2 cm, hepatomegaly noted, which is likely from fatty liver and intrahepatic ductal dilatation is also seen. IMPRESSION: * Choledocholithiasis with ductal dilation, leukocytosis, fever and chills, suggests likely bile duct stone with increased risk for ascending cholangitis. * Enlarged pancreatic head in this clinical setting with elevated bilirubin and intraductal dilation, suspicious for possible pancreatic malignancy. Cholangio CA cannot be excluded too. * Fatty liver. * BPH. * Arthritis. * Acute anemia with evidence of macrocytosis. PLAN: * Continue with IV hydration. * May give a clear liquid diet for today. * Recommend ERCP with possible sphincterotomy, stone removal, and brushing of bile duct. * Follow up with a.m. labs. * Continue antibiotic therapy, antiemetics p.r.n. * Follow up on cultures pending. * We will need to hold Lovenox at least 24 hours prior to any endoscopic interventions. The above labs and imaging studies and their significance were discussed with this patient. The physical findings on this examination and their significance were also discussed with this patient. The patient verbalizes understanding of these and also of the management plan as listed above. The patient, however, declines any further intervention. He wants to eat. He requests return to the facility. All questions were answered. We will discuss further management with admitting MD. I have discussed this with the surgeon already also. Again, Dr. Stanley, thank you for allowing me to participate in the care of this patient. TID: [id number] RECEIPT: [id number] cc: DAVID STANLEY MD(User)
[2024-08-27 12:00] VITALS: BP 126/84; PULSE 77; RESP 18; TEMP 97.4
[2024-08-27] MEDS: ZOSYN 3.375GM +NS 50ML IV SCH (13:06)
[2024-08-27] MEDS: PoTASSium chl 10% ELIXIR 20MEQ 20 MEQ/15 ML UDCUP PO PRN (13:06)
--- NOTE | 2024-08-27 14:40 | NUR ---
DISCHARGE PIV DC'D DISCHARGE INSTRUCTIONS GIVEN TO PATIENT REPORT CALLED TO AN [facility] [employer] AT 1415 WITH [facility] PATIENT AWARE TO REPORT TO THE NEAREST ER IF SYMPTOMS WORSEN PATIENT SIGNED REFUSALS FOR ERCP AND TO FOLLOW SURGICAL RECOMMENDATIONS ALL QUESTIONS ANSWERED PRIOR TO DISCHARGE
--- NOTE | 2024-08-27 19:41 | DS ---
Discharge Summary Hospital Course This is a 83-year-old male with past medical history of osteoarthritis, BPH who was brought from the shelter to the hospital with chief complaint of abdominal pain and weakness. The patient also complained of fever. T-max was 101.8. Pulse also was elevated at 112 and the WBC was 12.6. The patient was found with elevated liver enzymes with an alkaline phosphatase of 663, AST 145, ALT 135. Total bilirubin was 4.1. Abdominal sonogram has been done, which shows multiple gallstones and intrahepatic and extrahepatic dilatation. Denied nausea and vomiting. No diarrhea. No bleeding tendencies. No rashes or itchiness. Patient was started on Zosyn. General surgeon was consulted who recommended an ERCP and possible laparoscopic cholecystectomy. Gastroenterology was consulted and he also recommend ERCP with possible sphincterotomy, stone removal, and brushing of bile duct. Patient however has refused both procedures and wishes to go back to the shelter. Risk of possible perforation, peritonitis, possible septic shock and possible were explained to patient. Patient to follow up with his primary care provider at the shelter. FINAL DISCHARGE DIAGNOSIS. Choledocholithiasis with ductal dilation. Possible cholangitis. Sepsis. Cholecystitis. Elevated liver enzymes. Leukocytosis. PLAN. Patient is being discharged back to the shelter. Continue same home medications. Patient is to follow up with his primary care provider at the shelter. This case was reviewed and discussed with my supervising physician and the above assessment and plan was formulated and agreed upon. ATTESTATION BY PHYSICIAN I have seen and examined the patient. I reviewed the documentation, medical decision making, and treatment plan as noted by the mid-level provider above. I agree with the findings and plan of care. EDISON STANLEY MD, MIRTA L [facility] Aug 27, 2024 19:41
== END 2024-08-27 15:30 | DRG 872 ==
LOC: EDH 16:54 → EEVIPCON 16:54 → EDHIP 18:50 → 3AH 21:58
PROVIDERS: ADMIT Internal Medicine Infectious Disease; ATTEND Internal Medicine Infectious Disease
DX: A41.9 Sepsis, unspecified organism (principal); K80.60 Calculus of gallbladder and bile duct with cholecystitis, unspecified, without obstruction; K80.40 Calculus of bile duct with cholecystitis, unspecified, without obstruction; N40.0 Benign prostatic hyperplasia without lower urinary tract symptoms; D64.9 Anemia, unspecified; K76.0 Fatty (change of) liver, not elsewhere classified; Z87.891 Personal history of nicotine dependence
CPT/HCPCS: 36415; 71045; 74178; 74183; 76705; 80048; 80053; 80076; 81001; 82378; 82550; 83605; 83735; 83880; 84484; 85025; 85027; 86316; 87040; 87635; 87804; 87880; 93005; 99285; G0378; J1650; J2543; J3475; J7030; J7042; Q9967; A9575